=== PATIENT | female | born 1940 | race Caucasian/White ===

== ENCOUNTER 2024-12-27 05:18 | Inpatient (IN) | payer MEDICARE, BC ==
[2024-12-27] VITALS (11 sets, daily range): BP systolic 150–170; BP diastolic 60–73; PULSE 67–78; RESP 14–21; TEMP 97.5–98.1; O2SAT 92–97
[~2024-12-27] VITALS: Ht 167.6 cm; Wt 86.4 kg
[~2024-12-27 05:18] MED LIST: ASPI81TA52 PO; ATOR20TA PO; DOCU100C40 PO; GLIM1TAB57 PO; HYDR-3972 PO; LOP25T PO
[2024-12-27] MEDS ORDERED: heparin 25,000 UNIT/250ml bag 250 ML IV PRN (05:25)
[2024-12-27] MEDS ORDERED: heparin 10,000 units/1 ML INJ IV PRN (05:25)
[2024-12-27 05:56] LABS: BASOPHILS % (AUTO) 0.6 % (0-1); EOSINOPHILS # (AUTO) 0.1 X10'3 (0-0.9); HEMATOCRIT 33.7 % (35.0-45.0); HEMOGLOBIN 11.5 g/dl (12.0-16.0); LYMPHOCYTES # (AUTO) 1.7 X10'3 (1.1-4.8); LYMPHOCYTES % (AUTO) 33.7 % (21-51); MEAN CORPUSCULAR HEMOGLOBIN 30.6 PG (27.0-31.0); MEAN CORPUSCULAR HGB CONC 34.1 g/dL (33.0-36.5); MEAN CORPUSCULAR VOLUME 89.6 FL (78-98); MEAN PLATELET VOLUME 8.9 FL (7.4-10.4); MONOCYTES # (AUTO) 0.5 X10'3 (0-0.9); MONOCYTES % (AUTO) 9.2 % (2-12); NEUTROPHILS # (AUTO) 2.8 X10'3 (1.8-7.7); NEUTROPHILS % (AUTO) 55.5 % (42-75); PLATELET COUNT 194 X10'3 (140-440); RED BLOOD COUNT 3.76 X10'6 (4.20-5.60); RED CELL DISTRIBUTION WIDTH 14.8 % (11.5-14.5); WHITE BLOOD COUNT 5.1 X10'3 (4.5-11.0)
[2024-12-27 05:58] LABS: APTT 40 SECONDS (22-32); PROTHROMBIN TIME 10.4 SECONDS (9.0-12.0)
[2024-12-27 06:08] LABS: ALBUMIN 3.7 G/DL (3.4-5.0); ANION GAP 10 (8-16); BLOOD UREA NITROGEN 32 MG/DL (7-18); BUN/CREATININE RATIO 30.8 (10.0-20.0); CALCIUM 9.4 MG/DL (8.5-10.1); CHLORIDE 108 MMOL/L (99-107); CREATININE 1.04 MG/DL (0.40-0.90); GLUCOSE 104 MG/DL (70-104); POTASSIUM 4.1 MMOL/L (3.5-5.1); PRO BRAIN NATRIURETIC PEPTIDE 1675 PG/ML (0-450); SODIUM 144 MMOL/L (135-145); TOTAL CARBON DIOXIDE 25.6 MMOL/L (24-32); eCRCL 39 ML/MIN; eGFR 51 ML/MIN
[2024-12-27] MEDS: heparin 25,000 UNIT/250ml bag 250 ML IV PRN (06:22)
[2024-12-27] MEDS: MESSAGE TO NURSING IV ONE ×3 (06:26→22:53)
[2024-12-27] MEDS: COMMUNICATION ORDER 1 EA MISC MC ONE (06:26)
--- NOTE | 2024-12-27 07:08 | Physician Documentation ---
History of Present Illness ~ Chief Complaint: Chest Pain Stated Complaint: CARDIAC ISSUE Time Seen by MD: 06:18 Primary Medical Doctor: CONCEPCIÓN CANDELARIA GRP Mode of Arrival: EMS HPI Patient was seen at [facility] with the left than transferred here for NSTEMI. She had a episode of chest pain that started last night while she was at rest her last for a few hours. She was worked up thoroughly in the previous hospital where she had an elevated troponin she had a negative CTA of her chest. She is pain-free at this time. She has a history of cardiac disease who had a stent placed last June. Medication Reconciliation Allergies: Coded Allergies: metformin (Unverified Allergy, Unknown, 12/27/24) isosorbide (Verified Adverse Reaction, Unknown, UNABLE TO TOLERATE SE, 12/27/24) Scheduled Aspirin (Aspirin EC), 1 TABLET PO DAILY, (Reported) Atorvastatin Calcium* (Lipitor*), 1 TABLET PO HS, (Reported) Docusate Sodium (Docusate Sodium), 100 MG PO BID Glimepiride* (Amaryl*), 2 TABLET PO DAILY, (Reported) Metoprolol Tartrate* (Lopressor tablet*), 12.5 MG PO Q12H Scheduled PRN Hydrocodone Bit/Acetaminophen (Hydrocodon-Acetaminophn 10-325 tablet), 1 TAB PO Q4H PRN for moderate pain 4-6 Physical Exam Vital Signs: Temperature: 97.8, Source: Oral, Heart Rate: 74, Respiratory Rate: 11, BP: 167/70, Pulse Oximetry: 98, Weight: 86.360 Physical Exam General: Awake and Alert, no acute distress. HEENT: Conjunctiva pink, Sclera clear, Mucus Membranes moist. Neck: Supple without masses and tenderness. Resp: Unlabored. Lungs clear to auscultation bilaterally. Heart: Regular Rate and rhythm, normal S1 and S2 without murmur, rub or gallop. Abdomen: Soft and non tender no organomegaly Extremities: No cyanosis,clubbing or edema. Skin: Warm and Dry. Neuro: GCS 15; no focal deficits Progress Results/Orders Results/Orders Medications Received in ER Medications (Trade) Dose Ordered Sig/Aditya Route PRN Reason Start Time Stop Time Status Last Admin Dose Admin Heparin Sodium/ Dextrose 250 ml @ 10 mls/hr Q25H PRN IV TO MAINTAIN PTT WITHIN RANGE 12/27/24 05:57 12/27/24 06:22 10 MLS/HR Vital Signs 12/27/24 12/27/24 12/27/24 05:22 05:45 05:52 Temp 97.8 97.8 Pulse 78 74 Resp 17 16 11 B/P (MAP) 160/69 167/70 (102) Pulse Ox 97 98 Laboratory Tests Test 12/27/24 05:34 White Blood Count 5.1 Red Blood Count 3.76 L Hemoglobin 11.5 L Hematocrit 33.7 L Mean Corpuscular Volume 89.6 Mean Corpuscular Hemoglobin 30.6 Mean Corpuscular Hemoglobin Concent 34.1 Red Cell Distribution Width 14.8 H Platelet Count 194 Mean Platelet Volume 8.9 Neutrophils (%) (Auto) 55.5 Lymphocytes (%) (Auto) 33.7 Monocytes (%) (Auto) 9.2 Eosinophils (%) (Auto) 1.0 Basophils (%) (Auto) 0.6 Neutrophils # (Auto) 2.8 Lymphocytes # (Auto) 1.7 Monocytes # (Auto) 0.5 Eosinophils # (Auto) 0.1 Basophils # (Auto) 0.0 CBC Comment Prothrombin Time 10.4 INR International Normalized Ratio 1.0 Activated Partial Thromboplast Time 40 H Coagulation Comments Sodium Level 144 Potassium Level 4.1 Chloride Level 108 H Carbon Dioxide Level 25.6 Anion Gap 10 Blood Urea Nitrogen 32 H Creatinine 1.04 H Estimated GFR/1.73 m2 51 BUN/Creatinine Ratio 30.8 H Glucose Level 104 Calcium Level 9.4 Troponin I High Sensitivity 3947 *H Pro-B-Type Natriuretic Peptide 1675 H Albumin 3.7 Chemistry Comments Medical Decision Making Findings EKGs interpreted by me shows a sinus rhythm of 81 beats per minute left axis deviation left bundle branch block no ST elevation or depression Patient was transferred from outside hospital she has had an NSTEMI she had a slightly elevated troponin at the previous hospital troponin here is 3900. She had already received aspirin she is on heparin infusion. She is pain-free hemod ynamically stable. I discussed the case with Dr. Sheridan and she was admitted to the hospitalist. Departure Disposition: ADMITTED INPATIENT Impression: Primary Impression: NSTEMI (non-ST elevated myocardial infarction) Condition: Stable Referrals: NO PRIMARY CARE PROVIDER (PCP) Education Educated: Patient Educated regarding: diagnosis, treatment Critical Care Note Critical Care Note This patient had a high probability of sudden, clinically significant deterioration, which required the highest level of physician preparedness to intervene urgently. The patient required and I delivered critical care from time of arrival until disposition. Critical care time was separate from procedural such as intubation or central line placement or cardioversion. Critical care included initial assessment of the seriously ill patient, initiation of diagnostic studies and treatment, management of life-threatening and/or end organ supporting interventions that required frequent physician assessment, and phone consultation with other providers as outlined in the progress notes. Spent with family or surrogates is included only if the patient was not capable of providing the necessary information or participating in medical decision-making. Total critical care time: 35 minutes Signature Scribe Signature: no scribe Attestation: no felishaibe NICOLE WILDE MD Dec 27, 2024 07:08
[2024-12-27] MEDS ORDERED: LISI20TA28 PO (07:17)
[2024-12-27] MEDS ORDERED: CLOP75TA34 PO (07:17)
[2024-12-27] MEDS ORDERED: PIOG15TA70 PO (07:17)
[2024-12-27] MEDS ORDERED: ROSU20TA98 PO (07:17)
[2024-12-27] MEDS ORDERED: LISI10TA27 PO (07:17)
[2024-12-27] MEDS ORDERED: GLIM4TAB7 PO (07:17)
[2024-12-27] MEDS ORDERED: METO-395 PO (07:17)
--- NOTE | 2024-12-27 07:58 | ELECTROCARDIOGRAPH REPORT ---
[facility] Test Date: 2024-12-27 Test Time: 05:24:26 Pat Name: SURYA PATEL Department: EMERGENCY ROOM Room: [place] [address] Gender: F Hospital Receptionist: NATHANAEL : 1940 Requested By: LINDA CALLOWAY Order Number: [id number] Reading MD: Dr. Gigi Sutton Measurements Intervals [place] Rate: 81 P: 6 [place]: 192 QRS: -31 QRSD: 156 T: 113 QT: 427 QTc: 496 Interpretive Statements Sinus rhythm Probable left atrial enlargement Left bundle branch block Electronically Signed On 12-29-2024 6:35:[address] Gigi Sutton Please click the below link to view image of tracing.
[2024-12-27] MEDS ORDERED: bisacodyl 10mg suppository rectal RC PRN (08:15)
[2024-12-27] MEDS ORDERED: magnesium sulf-water 2g/50mL 50 ML IV PRN (08:15)
[2024-12-27] MEDS ORDERED: potassium Cl 20 mEq SR tablet PO PRN ×2 (08:15)
[2024-12-27] MEDS ORDERED: glucagon, human recombinant 1mg kit SUBCUT PRN (08:15)
[2024-12-27] MEDS ORDERED: magnesium sulf-water 4G/100mL 100 ML IV PRN (08:15)
[2024-12-27] MEDS ORDERED: dextrose 50%-water 50ml dispensing syringe IV PRN ×2 (08:15)
[2024-12-27] MEDS ORDERED: DEXTROSE 15 GM of carb/4 tabs (each vial/BOTTLE has 4 tablets) PO PRN ×2 (08:15)
[2024-12-27] MEDS ORDERED: mag hydrox/Alum hydrox/simeth 30ml oral suspension PO PRN (08:15)
[2024-12-27] MEDS ORDERED: potassium Cl 40MEQ/1/2NS 520ml 520 ML IV PRN (08:15)
[2024-12-27 08:57] LABS: HEMOGLOBIN A1C 6.6 % (4.5-6.2)
[2024-12-27] MEDS: PERFLUTREN PROTEIN-A MICROSPHR (Optison) 0.22 MG/ML 3ML VIAL IV ONE (09:06)
[2024-12-27] MEDS: INSULIN LISPRO 100 UNIT/ML INSULN.PEN MULTI-DOSE SQ SCH (12:00)
--- NOTE | 2024-12-27 12:09 | CONSULTATION REPORT ---
History of Present Illness Providers to CC CC: LOWELL SHERIDAN MD ~ Reason for Admit\Admit Dx: Cardiology consultation History of Present Illness This is an 84-year-old female who has past medical history is significant for coronary artery disease status post four vessel CABG with surgical aortic valve replacement in 2015, hypertension, hyperlipidemia, type 2 diabetes. She had an NSTEMI in June 2024 and underwent PCI of the SVG to PDA and SVG to diagonal/OM. Presented secondary to chest pain located in the center of the chest and associated shortness for breath. No diaphoresis or nausea and vomiting. She was found to have significantly elevated troponins and cardiology consultation was requested. Allergies: Coded Allergies: metformin (Unverified Allergy, Unknown, 12/27/24) isosorbide (Verified Adverse Reaction, Unknown, UNABLE TO TOLERATE SE, 12/27/24) Home Medications Home Medications Active Lopressor tablet* (Metoprolol Tartrate) 25 Mg Tablet 12.5 Mg PO Q12H Docusate Sodium 100 Mg Caps 100 Mg PO BID Reported Lisinopril 20 Mg Tablet 1 Tab PO DAILY Amaryl* (Glimepiride) 4 Mg Tablet 2 Tab PO DAILY Rosuvastatin Calcium 20 Mg Tablet 1 Tab PO DAILY Lisinopril 10 Mg Tablet 1 Tab PO DAILY Pioglitazone (Pioglitazone Hcl) 15 Mg Tablet 1 Tab PO BID Metoprolol Succinate 25 Mg Tab.sr.24h 1 Tab PO DAILY Clopidogrel (Clopidogrel Bisulfate) 75 Mg Tablet 1 Tab PO DAILY Lipitor* (Atorvastatin Calcium) 20 Mg Tablet 1 Tablet PO HS Aspirin EC (Aspirin) 81 Mg Tablet.dr 1 Tablet PO DAILY Past Medical History Medical History Comment Coronary artery disease Recent NSTEMI Severe aortic stenosis status post surgical aortic valve replacement in 2015 Hypertension Hyperlipidemia Type 2 diabetes mellitus Obstructive sleep apnea compliant with CPAP Past Surgical History Surgical History Comment Four-vessel CABG in 2016 with CAI to LAD, sequential SVG to diagonal/OM, SVG to PDA Angiogram with PCI of the SVG to PDA and SVG to diagonal/OM Surgical aortic valve replacement with Bar Magna valve 23 mm Orthopedic surgery Past Social History Social History Comment Nonsmoker. Denies alcohol. Her granddaughter has recently moved in with her and has good family support. Physical Exam Last Vital Signs Recorded: RN Vital Signs have been reviewed: Yes, Temperature: 97.8, Source: Oral, Heart Rate: 77, Respiratory Rate: 21, BP: 148/64, Pulse Oximetry: 99, Weight: 86.360 Physical Exam General: Awake, alert, oriented. No apparent distress Neck: Supple. Normal range of motion. No JVD Respiratory: Lungs are clear to auscultation bilaterally. No respiratory distress. Chest: Normal shape and size. No accessory muscle use. Cardiovascular: Regular rate and rhythm. S1-S2. No murmur, gallop, rub. Gastrointestinal: Abdomen is soft. Nontender to palpation. Bowel sounds present. Extremities: No lower extremity edema, cyanosis or clubbing. Neurologic: Alert and oriented x4. Nonfocal Psychiatric: Normal mood and affect. Skin: Normal color. Warm and dry. Review of Systems ROS Patient complains of chest pain and shortness for breath as noted in HPI. Furthermore has intermittent anxiety which causes chest pressure. Was asked, but otherwise denies review of systems. Results Diagram Lab Result Diagram: 12/27/24 0534 12/27/24 0534 Assessment/Plan Additional Plan This is a 84-year-old female who was transferred from [facility] secondary to chest pain. The following is her problem list: NSTEMI Recent NSTEMI with PCI of the SVG to PDA and sequential SVG to diagonal/OM High sensitivity troponin 3947, 5621, 6691 Has been started on a heparin drip --continue heparin drip --aspirin 81 mg daily --continue Plavix 75 mg daily --continue metoprolol succinate 25 mg daily --check lipids. Goal LDL less than 55. --recommend high-intensity statin your Hypertension --continue lisinopril Diabetes mellitus type 2 --check hemoglobin A1c --management per hospitalist Case discussed with Dr. Sharon Sheridan. Patient will require cardiac catheterization. Risks, benefits and alternatives reviewed in detail with the patient. She had the opportunity to ask questions and wishes to proceed. She is scheduled for this afternoon. Supervising MD Supervising Physician: JUANIS Blood NP Dec 27, 2024 12:08
[2024-12-27] MEDS: atorvastatin 10mg tablet PO ONE (12:50)
[2024-12-27] MEDS: metoprolol tartrate 12.5mg (1/2 tablet) PO ONE (12:51)
[2024-12-27] MEDS ORDERED: nitroGLYCERIN 0.4mg SUBLingual tab SL PRN (13:00)
--- NOTE | 2024-12-27 13:05 | ELECTROCARDIOGRAPH REPORT ---
[facility] Test Date: 2024-12-27 Test Time: 13:03:52 Pat Name: SURYA PATEL Department: [facility]S Patient ID: [facility]-[id number] Room: [place] [address] A Gender: F Hand [employer] Trimmer: : 1940 Requested By: JERAMIE RIGGS Order Number: [id number] Reading MD: Dr. Jorge Sheridan Measurements Intervals [place] Rate: 75 P: 2 IN: 180 QRS: -39 QRSD: 157 T: 109 QT: 444 QTc: 496 Interpretive Statements Sinus rhythm Probable left atrial enlargement Left bundle branch block Electronically Signed On 12-28-2024 7:00:[address] Jorge Sheridan Please click the below link to view image of tracing.
[2024-12-27] MEDS: nitroGLYCERIN 0.4mg SUBLingual tab SL ONE (13:10)
[2024-12-27] MEDS ORDERED: LIDOcaine 1% 30ml preserv. free vial ONE (15:57)
[2024-12-27] MEDS ORDERED: fentaNYL/PF 50MCG/1 ML 2ML syringe ONE (15:57)
[2024-12-27] MEDS ORDERED: iohexol 350MG/ML 100ml bottle IV ONE (15:57)
[2024-12-27] MEDS ORDERED: midazolam 1 mg/ML 2ml injection ONE (15:57)
[2024-12-27] MEDS ORDERED: heparin 1,000unit/ml 10ml vial 10 ML ONE (16:38)
[2024-12-27] MEDS ORDERED: ticagrelor 90mg tablet ONE (16:44)
[2024-12-27] MEDS ORDERED: aspirin 325mg tablet ONE (16:47)
[2024-12-27] MEDS ORDERED: proCHLORperazine 10 MG/2 ml inj IV PRN (17:05)
[2024-12-27] MEDS ORDERED: OXAZEpam 15mg capsule PO PRN (17:05)
[2024-12-27] MEDS ORDERED: HYDROcodone/acetaminophen 5mg/325mg tablet PO PRN (17:05)
[2024-12-27] MEDS ORDERED: ondansetron/PF 4mg/2ml inj IV PRN (17:05)
[2024-12-27] MEDS ORDERED: HYDROcodone/acetaminophen 10/325mg tab PO PRN (17:05)
--- NOTE | 2024-12-27 18:08 | CARDIOLOGY REPORT ---
APPROVED REPORT EXAM: Comprehensive 2D, Doppler, and color-flow Echocardiogram. Patient Location: 302 Heart Rate: 74 bpm Rhythm: NSR Indications MYOCARDIAL INFARCTION ELEVATED PRO BNP 1675 HS TROPONIN 3947, 5621 BOVINE AVR + CABGx4 2015 [facility] STENTS BYPASS GRAFTS x2 07-19-2024 [facility] CLAY GRINDER: Nina QUIROZ MD PRIOR ECHOCARDIOGRAM: ELSY -10-11-2015 [facility] LVER 65-70%; M/MOD clvh; MOD lae; mod/sev ; post op bi oprostetic AVR; tr TR; m MR; tr TR 2D Dimensions RVDd 3.0 cm IVSd 1.4 (0.7-1.1cm) LVDd 4.7 cm PWd 1.4 (0.7-1.1cm) IVSs 1.6 (0.8-1.2cm) LVDs 3.4 (2.5-4.0cm) PWs 1.7 (0.8-1.2cm) LVEF(%) 54.8 (>50%) FS (%) 28.4 % SV 56.9 ml CO 4.3 L/min M-Mode Dimensions RVDd 2.99 (2.1-3.2cm) Left Atrium(MM) 4.72 (2.5-4.0cm) Aortic Root 3.11 (2.2-3.7cm) Aortic Cusp Exc 1.46 (1.5-2.0cm) Aortic Valve AoV Peak Danie. 287.8 cm/s AoV VTI 62.4 cm AO Peak GR. 33.1 mmHg AO Mean GR. 17 mmHg LVOT VTI 28.83 cm LVOT Peak Danie. 115.0 cm/s ROXANA(VTI)/BSA 1.47 cm2/m2 ROXANA (VTI) 1.47 cm2 Mitral Valve MV E Velocity 172.7 cm/s MV Peak Gr. 11 mmHg MV DECEL TIME 292 ms MV A Velocity 177.8 cm/s MV PHT 72 ms E/A Ratio 1.0 MVA (PHT) 3.06 cm2 MR MPxt092.9 cm/s MV RInh927.4 cm/sMR PG Max91.4 mmHg Tricuspid Valve TR P. Velocity 335 cm/s RAP ESTIMATE 5 mmHg TR Peak Gr. 45 mmHg RVSP 50 mmHg LEFT VENTRICLE Normal LV size and function. Moderate concentric hypertrophy. LVEF is 55%. RIGHT VENTRICLE RV is normal size and function. Elevated right heart pressures with an RVSP of 50 mmHg. ATRIA Left atrium is moderately dilated. Right atrium is mildly dilated. AORTIC VALVE Bovine AVR appears normalc without stenosis. Peak / mean gradients of 33/17 mmHG. Peak velocity is m easured at 2.87 m/sec. No insufficiency. MITRAL VALVE Mitral valve leaflets are mildly thickened. Mild mitral annular calcification without stenosis. Mild regurgitation. PULMONIC VALVE The pulmonary valve is normal in structure. Trace regurgitation. GREAT VESSELS The aortic root is normal in size. The IVC is normal in size and collapses >50% with inspiration. PERICARDIUM Normal pericardium. No effusion. Other Information Study Quality: Fair Technically limited study due to Body Habitus. Conclusion Normal LV size and function. Moderate concentric hypertrophy.LVEF is 55%. RV is normal size and function. Elevated right heart pressures with an RVSP of 50 mmHg. Left atrium is moderately dilated. Right atrium is mildly dilated. Bovine AVR appears normalc without stenosis. Peak / mean gradients of 33/17 mmHG. Peak velocity is measured at 2.87 m/sec. No insufficiency. Mitral valve leaflets are mildly thickened. Mild mitral annular calcification without stenosis. Mil d regurgitation. The pulmonary valve is normal in structure. Trace regurgitation. Normal pericardium. No effusion.
[2024-12-27] MEDS: ondansetron/PF 4mg/2ml inj IV PRN (18:43)
--- NOTE | 2024-12-27 19:23 | HISTORY AND PHYSICAL ---
History & Physical Providers to CC ~ History of Present Illness Reason for Admit\Complaint: NSTEMI History of Present Illness This is an 84-year-old female who was transferred from [facility] with an NSTEMI the patient developed chest pain that was substernal woke her up at asleep last evening that was 10/10 pressure there was no radiation nor diaphoresis with this chest pain however the patient did develop some mild shortness of breath she has a elevated troponin at [facility] and a CTA of the chest was obtained that was negative for PE and she was transferred here to [facility]- the patient has aserial troponin was up trending and peaked at 6691 the patient is on heparin drip was evaluated by Cardiology Dr. Sheridan and the patient is taken for a cardiac catheterization this afternoon. Allergies: Coded Allergies: metformin (Unverified Allergy, Unknown, 12/27/24) isosorbide (Verified Adverse Reaction, Unknown, UNABLE TO TOLERATE SE, 12/27/24) Home Medications Home Medications Active Lopressor tablet* (Metoprolol Tartrate) 25 Mg Tablet 12.5 Mg PO Q12H Docusate Sodium 100 Mg Caps 100 Mg PO BID Reported Lisinopril 20 Mg Tablet 1 Tab PO DAILY Amaryl* (Glimepiride) 4 Mg Tablet 2 Tab PO DAILY Rosuvastatin Calcium 20 Mg Tablet 1 Tab PO DAILY Lisinopril 10 Mg Tablet 1 Tab PO DAILY Pioglitazone (Pioglitazone Hcl) 15 Mg Tablet 1 Tab PO BID Metoprolol Succinate 25 Mg Tab.sr.24h 1 Tab PO DAILY Clopidogrel (Clopidogrel Bisulfate) 75 Mg Tablet 1 Tab PO DAILY Lipitor* (Atorvastatin Calcium) 20 Mg Tablet 1 Tablet PO HS Aspirin EC (Aspirin) 81 Mg Tablet.dr 1 Tablet PO DAILY Past Medical History Past Medical History Coronary artery disease, hypertension, diabetes mellitus, obstructive sleep apnea on CPAP Past Surgical History Surgical History Comment Four vessel CABG and aortic valve replacement in 2016, coronary angiogram with stent placement 06/2024, hysterectomy, appendectomy, tonsillectomy, right foot surgery Family History Family History: FH: coronary artery disease MOTHER FH: multiple sclerosis FATHER Past Social History Social History Comment Patient denes history of smoking/ drinking alcohol nor any illicit drug use Full Code Status ROS ROS Except for positives in the HPI the rest of the 14 point review systems is negative Exam Vitals: Vital Signs Date Time Temp Pulse Resp B/P (MAP) Pulse Ox O2 Delivery O2 Flow Rate FiO2 12/27/24 18:38 97.8 68 18 170/62 (98) 96 12/27/24 11:00 Room Air General: Gen. No acute distress alert and oriented 4 Lungs clear to ascultation bilaterally, no wheezes rales or rhonchi appreciated Heart normal sinus rhythm no murmurs rubs or clicks noted Abdomen soft nontender bowel sounds are normoactive Lower extremities no clubbing cyanosis, nor edema appreciated bilaterally Diagnostic Data Last Recorded Lab Results: 12/27/24 0534 12/27/24 0534 Diagnostic Data: Laboratory Tests Test 12/27/24 05:34 12/27/24 11:55 Prothrombin Time 10.4 SECONDS (9.0-12.0) INR International Normalized Ratio 1.0 INR Activated Partial Thromboplast Time 40 SECONDS (22-32) H APTT (Heparin Protocol) 66 SECONDS (45-60) H Coagulation Comments Counseling Services Smoking & Tobacco Cessation: N/A Advance Care Planning Advanced Care plannin - 30 Minutes Problems: (1) NSTEMI (non-ST elevated myocardial infarction) Status: Acute Additional Plan # NSTEMI- On heparin drip Echocardiogram demonstrates high right-sided heart pressures on preliminary report however LVEF is intact at 55% Dr. Sheridan is taking the patient to the cardiac catheterization lab awaiting angiogram results Fasting lipid panel is ordered # diabetes mellitus Hyper and hypoglycemic protocol # hypertension Continue lisinopril # kidney disease eval for CKD versus MACARENA Daily metabolic panels are ordered I spent a total of 17 minutes on reviewing various resuscitative measures/ ACP with the patient at the time of admission. The patient has decided on a full code status Date of Service: Dec 27, 2024 Billing Provider: JERAMIE RIGGS DO Common Visit Codes: 87993-RSENWCF INP/OBS CARE (HIGH) Secondary Visit Codes: 26045-[id number] CARE PLAN 30 MINUTES JERAMIE RIGGS DO Dec 27, 2024 19:23
[2024-12-27] MEDS: docusate sod 100mg capsule PO SCH (19:48)
[2024-12-27] MEDS: metoprolol tartrate 12.5mg (1/2 tablet) PO SCH (19:49)
[2024-12-27] MEDS: pioglitazone 15mg tablet PO SCH (19:49)
[2024-12-27] MEDS: ticagrelor 90mg tablet PO SCH (19:51)
[2024-12-27] MEDS: K and/or MAG REPLACEMENT MC SCH (20:00)
[2024-12-27] MEDS ORDERED: atorvastatin 20mg tablet PO SCH (21:00)
[2024-12-28 02:00] VITALS: BP 165/68; PULSE 74; RESP 18; TEMP 97.7; O2SAT 99
[2024-12-28] MEDS: acetaminophen 325mg tablet PO PRN (02:26)
[2024-12-28 05:35] LABS: BASOPHILS % (AUTO) 0.3 % (0-1); EOSINOPHILS # (AUTO) 0.1 X10'3 (0-0.9); EOSINOPHILS % (AUTO) 1.5 % (0-6); HEMOGLOBIN 11.3 g/dl (12.0-16.0); LYMPHOCYTES # (AUTO) 0.9 X10'3 (1.1-4.8); LYMPHOCYTES % (AUTO) 15.9 % (21-51); MEAN CORPUSCULAR HEMOGLOBIN 29.8 PG (27.0-31.0); MEAN CORPUSCULAR HGB CONC 33.2 g/dL (33.0-36.5); MEAN CORPUSCULAR VOLUME 89.7 FL (78-98); MEAN PLATELET VOLUME 8.6 FL (7.4-10.4); MONOCYTES # (AUTO) 0.4 X10'3 (0-0.9); MONOCYTES % (AUTO) 7.4 % (2-12); NEUTROPHILS # (AUTO) 4.4 X10'3 (1.8-7.7); NEUTROPHILS % (AUTO) 74.9 % (42-75); PLATELET COUNT 196 X10'3 (140-440); RED BLOOD COUNT 3.79 X10'6 (4.20-5.60); RED CELL DISTRIBUTION WIDTH 14.7 % (11.5-14.5); WHITE BLOOD COUNT 5.9 X10'3 (4.5-11.0)
[2024-12-28 06:00] LABS: ALANINE AMINOTRANSFERASE 19 U/L (12-78); ALBUMIN 3.3 G/DL (3.4-5.0); ALBUMIN/GLOBULIN RATIO 0.9 (1.1-1.5); ALKALINE PHOSPHATASE 67 IU/L (46-116); ANION GAP 8 (8-16); ASPARTATE AMINO TRANSFERASE 39 U/L (10-37); BILIRUBIN,TOTAL 0.5 MG/DL (0.1-1.0); BLOOD UREA NITROGEN 18 MG/DL (7-18); BUN/CREATININE RATIO 21.4 (10.0-20.0); CALCIUM 8.9 MG/DL (8.5-10.1); CHLORIDE 107 MMOL/L (99-107); CHOL/HDL RATIO 2.2 (0.00-4.99); CHOLESTEROL 117 MG/DL (0-200); CREATININE 0.84 MG/DL (0.40-0.90); GLUCOSE 125 MG/DL (70-104); HDL CHOLESTEROL 53 MG/DL (35-60); LDL CHOLESTEROL 45 MG/DL (50-100); SODIUM 140 MMOL/L (135-145); TOTAL CARBON DIOXIDE 25.4 MMOL/L (24-32); TRIGLYCERIDES 117 MG/DL (20-135); eCRCL 48 ML/MIN; eGFR 65 ML/MIN
[2024-12-28 07:00] VITALS: BP 131/56; PULSE 66; RESP 18; TEMP 98.6; O2SAT 98
[2024-12-28 08:00] VITALS: BP_SYST 132; PULSE 70; RESP 16; O2SAT 97
[2024-12-28] MEDS: lisinopril 20mg tablet PO SCH (08:00)
[2024-12-28] MEDS: lisinopril 10 MG tablet PO SCH (08:00)
[2024-12-28] MEDS ORDERED: non-formulary drug (Rosuvastatin Calcium 1 TAB) PO SCH (08:00)
[2024-12-28] MEDS: metoprolol succinate 25mg (24-HOUR) SR. Tablet PO SCH (08:00)
[2024-12-28] MEDS ORDERED: TICA90TA PO (13:47)
[2024-12-28] MEDS: atorvastatin 20mg tablet PO SCH (14:07)
[2024-12-28] MEDS: aspirin 81mg, enteric-coated 1 TAB TABLET.DR PO SCH (14:14)
--- NOTE | 2024-12-28 21:53 | DISCHARGE SUMMARY ---
Discharge Summary Providers to CC ~ Discharge Summary Admission Diagnosis: NSTEMI Hospital Course DATE OF ADMISSION: 12/27/2024 DATE OF DISCHARGE: 12/28/2024 Discharge Diagnosis\Comment: NSTEMI, [id number]-vyvifqprr diabetes mellitus, hypertension, MACARENA present on admission likely secondary to dehydration/possible ATN Operations\Procedures: Coronary angiogram with angioplasty and stent placement Consultants: Dr. Cass Sheridan medicare specialist's Complications: None Condition on DC: Stable New Medications: Ticagrelor (Brilinta) 90 Mg Tablet 90 MG PO BID, #60 TAB Continued Medications: Aspirin (Aspirin EC) 81 Mg Tablet.dr 1 TABLET PO DAILY, #90 TABLET 3 Refills Atorvastatin Calcium* (Lipitor*) 20 Mg Tablet 1 TABLET PO HS, TABLET Docusate Sodium (Docusate Sodium) 100 Mg Caps 100 MG PO BID, #30 CAP Glimepiride* (Amaryl*) 4 Mg Tablet 2 TAB PO DAILY Lisinopril (Lisinopril) 10 Mg Tablet 1 TAB PO DAILY Lisinopril (Lisinopril) 20 Mg Tablet 1 TAB PO DAILY Metoprolol Succinate (Metoprolol Succinate) 25 Mg Tab.sr.24h 1 TAB PO DAILY Metoprolol Tartrate* (Lopressor tablet*) 25 Mg Tablet 12.5 MG PO Q12H, #60 TAB Pioglitazone Hcl (Pioglitazone) 15 Mg Tablet 1 TAB PO BID Rosuvastatin Calcium (Rosuvastatin Calcium) 20 Mg Tablet 1 TAB PO DAILY Discontinued Medications: Clopidogrel Bisulfate (Clopidogrel) 75 Mg Tablet 1 TAB PO DAILY Discharge Summary: I admitted the patient with the following HPI: This is an 84-year-old female who was transferred from [facility] with an NSTEMI the patient developed chest pain that was substernal woke her up at asleep last evening that was 10/10 pressure there was no radiation nor diaphoresis with this chest pain however the patient did develop some mild shortness of breath she has a elevated troponin at [facility] and a CTA of the chest was obtained that was negative for PE and she was transferred here to [facility]- the patient has aserial troponin was up trending and peaked at 6691 the patient is on heparin drip was evaluated by Cardiology Dr. Sheridan and the patient is taken for a cardiac catheterization this afternoon. The patient had a stenosis of one of her recent stents placed in June- the cardiac catheterization report is not yet dictated into the EMR and there was no hand written report of the procedure performed in the chart- the patient was placed on Brilinta and she has to stop her clopidogrel remains on aspirin. The patient was eager to be discharged home. The patient has a stellar fasting lipid panel with triglycerides of 117 total cholesterol of 117 LDL of 45 an HDL of 53- thus the patient remains on her home dose of atorvastatin 20 mg daily The patient is remains on a beta-coby in his on metoprolol. The echocardiogram demonstrates LVEF of 55% she did have elevated right heart pressures of RVSP of 55 mm Hg in his to follow up with Dr. Harper in two weeks The patient has wzw-qifwgil-ajwqxupcq diabetes mellitus her hemoglobin A1c is 6.6 in her blood sugars were controlled during hospitalization she remains on glimepiride and pioglitazone. The patient felt ready to be discharged and was medically cleared to be discharged on 12/28/2024 The patient was seen and evaluated on day of discharge. Time spent on discharge 35 minutes I received a page midmorning that the patient's brother had left to steel pickler the new prescription of Brilinta and that the patient was anticipating being discharged home and I spoke with the patient she was eager to be discharged home though was very polite and respectful and since the patient was stable it was reasonable to discharge the patient home. The patient recovered sooner than to be expected with NSTEMI/ cardiac catheterization with angioplasty and stent placement *Problems/Diagnosis: (1) NSTEMI (non-ST elevated myocardial infarction) Status: Acute Total Time Spent on D/C: > 30 Minutes Date of Service: Dec 28, 2024 Billing Provider: JERAMIE RIGGS DO Common Visit Codes: 77621-BRT/OBS DISCH DAY >30min JERAMIE RIGGS DO Dec 28, 2024 21:52
--- NOTE | 2025-01-07 20:14 | CARDIOLOGY REPORT ---
DATE OF SERVICE: 12/27/2024 DICTATING PHYSICIAN: Jorge Sheridan MD CARDIAC CATHETERIZATION REPORT DATE OF STUDY: 12/27/2024. PROCEDURES: * Selective coronary angiography. * Selective left internal mammary artery angiography. * Selective coronary artery bypass graft angiography x 3. * Angioplasty of the sequential saphenous vein graft to the obtuse marginal branch of the circumflex and the diagonal branch of the LAD. * Stenting x 1 of the sequential saphenous vein graft to the obtuse marginal branch of the circumflex and the diagonal branch of the LAD. * Conscious sedation monitoring time for 30 minutes. INDICATIONS: * Chest pain. * Abnormal stress test. PHYSICIAN: Jorge Sheridan MD DESCRIPTION OF PROCEDURE: After informed consent was obtained, the patient was brought to the lab, where she was prepped and draped in the usual sterile fashion. A 6-Irish sheath was inserted into the right femoral artery. Thereafter, using a JL4 and a JR4 catheter, selective coronary angiography was performed. Using the JR4 catheter, the catheter was manipulated and selective left internal mammary artery was performed. The catheter was also manipulated to engage the saphenous vein graft to the right coronary artery and the sequential vein graft to the obtuse marginal branch and the diagonal branch of the LAD. Revascularization was then performed as described below. HEMODYNAMICS: For the patient's hemodynamics, please refer to the event log. Left ventriculography was not performed. FINDINGS: All of the patient's [place] coronary arteries are occluded. The CAI to the LAD is widely patent. The saphenous vein graft to the RCA is widely patent. The sequential vein graft to the obtuse marginal branch of the circumflex and the diagonal branch of the LAD has a hazy 90% proximal stenosis. PERCUTANEOUS CORONARY INTERVENTION: Using an Amplatz 2 guiding catheter, the catheter was advanced under fluoroscopy guidance over a 0.035 wire and the vein graft to the diagonal branch and obtuse marginal branch intubated. Next, using an 0.014-choice PT wire, the wire was carefully navigated across the lesion. This was then pre-dilated with a 2.5 x 12 mm balloon. Next, using a 3.5 x 8 [place] T[place] stent, the stent was advanced across the lesion where it was deployed to rated burst atmospheres. Followup angiography revealed excellent angiographic results. IMPRESSION: * Occluded LAD with a patent CAI to the LAD. * Occluded RCA with a patent vein graft to the RCA. * Occluded circumflex coronary artery. The patient has a sequential vein graft to the diagonal branch of the LAD and the obtuse marginal branch of the circumflex. The proximal graft had a hazy 90% stenosis that was stented with a 3.5 x 8 mm [place] T[place] stent with excellent angiographic results. * Left ventriculography was not performed. Jorge Sheridan MD TID: [id number] RECEIPT: [id number] DONNY/GISSELLE
== END 2024-12-28 15:46 | disposition home or self-care (01) | DRG 321 ==
LOC: ER 05:18 → ED HOLD 08:23 → PCU 3S 11:26
PROVIDERS: ADMIT Family Medicine; ATTEND Family Medicine
PROC: 027034Z Dilation of Coronary Artery, One Artery with Drug-eluting Intraluminal Device, Percutaneous Approach (ICD-10-PCS; principal; 2024-12-27)
PROC: 4A023N7 Measurement of Cardiac Sampling and Pressure, Left Heart, Percutaneous Approach (ICD-10-PCS; 2024-12-27)
PROC: B2111ZZ Fluoroscopy of Multiple Coronary Arteries using Low Osmolar Contrast (ICD-10-PCS; 2024-12-27)
PROC: B2131ZZ Fluoroscopy of Multiple Coronary Artery Bypass Grafts using Low Osmolar Contrast (ICD-10-PCS; 2024-12-27)
DX: T82.857A Stenosis of other cardiac prosthetic devices, implants and grafts, initial encounter (principal); I21.4 Non-ST elevation (NSTEMI) myocardial infarction; N17.0 Acute kidney failure with tubular necrosis; I25.10 Atherosclerotic heart disease of native coronary artery without angina pectoris; I10 Essential (primary) hypertension; G47.33 Obstructive sleep apnea (adult) (pediatric); E78.5 Hyperlipidemia, unspecified; E11.9 Type 2 diabetes mellitus without complications; Y83.8 Other surgical procedures as the cause of abnormal reaction of the patient, or of later complication, without mention of misadventure at the time of the procedure; Z88.8 Allergy status to other drugs, medicaments and biological substances; Z79.82 Long term (current) use of aspirin; Z79.899 Other long term (current) drug therapy; Z79.84 Long term (current) use of oral hypoglycemic drugs; Z90.710 Acquired absence of both cervix and uterus; Z95.2 Presence of prosthetic heart valve; Z95.1 Presence of aortocoronary bypass graft; Y92.89 Other specified places as the place of occurrence of the external cause; E86.0 Dehydration
CPT/HCPCS: 93306; 93459; 96365; 99291; C9604; 36415; 80048; 80053; 80061; 82948; 83036; 83735; 83880; 84484; 85025; 85610; 85730; 93005; 97161; 97530; 99152; 99153; A4615; A4663; A6258; C1725; C1751; C1760; C1769; C1874; G0378; J1644; J1815; J2003; J2250; J2405; J3010; J7030; Q9967